=== PATIENT | female | born 1995 | race Caucasian/White ===

== ENCOUNTER 2024-07-19 18:21 | Emergency (ER) | payer MEDICAID ==
[~2024-07-19] VITALS: Ht 175.3 cm; Wt 107.0 kg
[2024-07-19 18:33] VITALS: BP_SYST 143; PULSE 70; RESP 18; TEMP 98.3; O2SAT 98
== END 2024-07-19 19:14 | disposition home or self-care (01) ==
LOC: SED 18:21
DX: B37.0 Candidal stomatitis (principal); Z90.710 Acquired absence of both cervix and uterus
CPT/HCPCS: 99283